=== PATIENT | male | born 1960 | race Hispanic/Latino ===

== ENCOUNTER 2023-01-06 11:34 | Emergency (ER) | payer MEDICARE ==
[~2023-01-06] VITALS: Ht 165.1 cm; Wt 90.7 kg
[2023-01-06] MEDS ORDERED: 0.9%NACL 1000ML 1,000 ML IV ONE (13:00)
[2023-01-06] MEDS ORDERED: ONDANSETRON 4MG INJ IVP ONE (13:00)
[2023-01-06 13:04] LABS: EOSINOPHILS % (AUTO) 0.1 % (0.0-8.0); HEMATOCRIT 32.7 % (42-54); LYMPHOCYTES % (AUTO) 10.2 % (21.0-51.0); MEAN CORPUSCULAR HEMOGLOBIN 29.7 pg (27.0-33.0); MEAN CORPUSCULAR HGB CONC 32.4 g/dL (32.0-36.0); MEAN CORPUSCULAR VOLUME 91.6 fL (79-99); NEUTROPHILS % (AUTO) 83.4 % (40.0-77.0); PLATELET COUNT (AUTO) 243 K/uL (130-400); RED BLOOD CELL COUNT(AUTO) 3.57 MIL/uL (4.50-6.20); RED CELL DISTRIBUTION WIDTH 13.5 % (11.0-15.5); WHITE BLOOD COUNT (AUTO) 13.4 K/uL (4.8-10.8)
[2023-01-06 13:19] LABS: ALBUMIN 3.3 g/dL (3.5-5.0); CREATININE 2.6 mg/dL (0.5-1.5); TOTAL PROTEIN, SERUM 7.3 g/dL (6.0-8.3)
[2023-01-06 13:23] LABS: POTASSIUM 6.3 mmol/L (3.5-5.1)
[2023-01-06] MEDS ORDERED: INSULIN HUMULIN R 100 UNIT/ML 3ML ONE ×2 (13:30→15:42)
[2023-01-06] MEDS ORDERED: 0.9%NACL 1000ML 1,000 ML IV SCH (14:00)
[2023-01-06 16:48] VITALS: BP 133/70; PULSE 104; RESP 18; O2SAT 95
[2023-01-06 16:49] LABS: CREATININE 2.4 mg/dL (0.5-1.5); POTASSIUM 4.3 mmol/L (3.5-5.1)
[2023-01-06] MEDS ORDERED: LOPE2CAP PO (17:19)
[2023-01-06] MEDS ORDERED: ONDA4TAB10 PO (17:19)
== END 2023-01-06 17:52 | disposition home or self-care (01) ==
LOC: EDH 11:34
DX: E11.65 Type 2 diabetes mellitus with hyperglycemia (principal); E87.5 Hyperkalemia; E86.0 Dehydration; R19.7 Diarrhea, unspecified; R11.2 Nausea with vomiting, unspecified; I10 Essential (primary) hypertension; E78.00 Pure hypercholesterolemia, unspecified; Z20.822 Contact with and (suspected) exposure to COVID-19
CPT/HCPCS: 99284; 96374; 87635; 96361; 80053; 83690; 85025; 36415; 93005; 80048; J1815; C9803; J7030; J2405